=== PATIENT | female | born 1970 | race Two or more races ===

== ENCOUNTER 2021-06-25 17:31 | Emergency (ER) | payer MEDICAID, OTHER ==
[~2021-06-25] VITALS: Ht 154.9 cm; Wt 95.3 kg
[~2021-06-25 17:31] MED LIST: AMIT50TA5; ASPI81CH43; CHOL200010; DULO60CA; GABA-339; HYDR500T13; METF-372; PIOG30TA28; ZOLP10TA
[2021-06-25 17:36] VITALS: BP 150/90
== END 2021-06-25 18:53 | disposition left against medical advice (07) ==
LOC: ER 17:31
DX: R20.2 Paresthesia of skin (principal); R07.89 Other chest pain; Z53.21 Procedure and treatment not carried out due to patient leaving prior to being seen by health care provider
CPT/HCPCS: 93005

== ENCOUNTER 2022-08-26 22:49 | Emergency (ER) | payer MEDICAID ==
[~2022-08-26] VITALS: Ht 157.5 cm; Wt 97.7 kg
[~2022-08-26 22:49] MED LIST changes: +AMIT50TA10; -AMIT50TA5; -DULO60CA; +DULO60CA41
[2022-08-26 23:20] VITALS: BP 132/69
[2022-08-27] MEDS ORDERED: SULF400T11 PO (02:04)
[2022-08-27] MEDS ORDERED: IBUP-1455 PO (02:04)
[2022-08-27] MEDS ORDERED: CEPH500C PO (02:04)
== END 2022-08-27 02:09 | disposition home or self-care (01) ==
LOC: ER 22:49
DX: L02.811 Cutaneous abscess of head [any part, except face] (principal); F32.9 Major depressive disorder, single episode, unspecified; F17.210 Nicotine dependence, cigarettes, uncomplicated; Z79.1 Long term (current) use of non-steroidal anti-inflammatories (NSAID); Z79.82 Long term (current) use of aspirin; Z79.899 Other long term (current) drug therapy
CPT/HCPCS: 10060